=== PATIENT | female | born 1960 | race African-American/Black ===

== ENCOUNTER → 2016-07-08 | Outpatient (CLI) | payer BC, OTHER ==
[~2016-07-08] MED LIST: AMLO5TAB2 PO; ASPI-650 PO; FURO20TA3 PO; LISI1TAB3 PO; REGADENOSON 0.4 MG/5 ML SYRINGE ONE
== END | disposition home or self-care (01) ==
LOC: CFH 11:47
PROVIDERS: ATTEND Family Medicine
DX: R07.2 Precordial pain (principal); R06.02 Shortness of breath
CPT/HCPCS: J2785

== ENCOUNTER 2016-10-18 21:33 | Emergency (ER) | payer BC ==
[~2016-10-18] VITALS: Ht 162.6 cm; Wt 151.8 kg
[~2016-10-18 21:33] MED LIST changes: -REGADENOSON 0.4 MG/5 ML SYRINGE ONE
[2016-10-18] MEDS ORDERED: SODIUM CHLORIDE FLUSH 10ML SYR IVF ONE (22:00)
[2016-10-18] MEDS ORDERED: BP MED PO (22:20)
[2016-10-18 22:35] LABS: BLOOD UREA NITROGEN 22 mg/dL (7-18)
[2016-10-18 22:48] LABS: IS PT STATUS REG ER OR PRE ER? YES
[2016-10-19 00:02] VITALS: BP 138/80
== END 2016-10-19 00:05 | disposition home or self-care (01) ==
LOC: ED 23:59
DX: R20.2 Paresthesia of skin (principal); I10 Essential (primary) hypertension
CPT/HCPCS: 36415; 70450; 80048; 82040; 84484; 85025; 85610; 85730; 93005; 99285

== ENCOUNTER 2017-02-01 18:46 | Inpatient (IN) | payer BC ==
[~2017-02-01] VITALS: Ht 165.1 cm; Wt 123.6 kg
[~2017-02-01 18:46] MED LIST changes: +BP MED PO
[2017-02-01] MEDS ORDERED: SODIUM CHLORIDE FLUSH 10ML SYR IVF ONE (19:00)
[2017-02-01 19:13] LABS: HEMATOCRIT 44.4 % (34.6-47.8); HEMOGLOBIN 14.7 g/dL (11.7-16.4); WHITE BLOOD COUNT 7.6 x10^3/uL (3.4-10)
[2017-02-01] MEDS ORDERED: VERA180T56 PO (19:25)
[2017-02-01] MEDS ORDERED: LOSA1TAB16 PO (19:25)
[2017-02-01 19:26] LABS: ASPARTATE AMINO TRANSFERASE 19 U/L (15-37); BLOOD UREA NITROGEN 15 mg/dL (7-18)
[2017-02-01 19:32] LABS: IS PT STATUS REG ER OR PRE ER? YES
[2017-02-01] MEDS ORDERED: MORPHINE SULFATE 4 MG/ML, 1ML ONE (20:59)
[2017-02-01] MEDS ORDERED: MORPHINE SULFATE 4 MG/ML, 1ML IVPush PRN (21:00)
[2017-02-01] MEDS ORDERED: ONDANSETRON 2MG/ML, 2ML ONE (21:00)
[2017-02-01] MEDS ORDERED: ONDANSETRON 2MG/ML, 2ML IVPush ONE (21:00)
[2017-02-01] MEDS ORDERED: ENOXAPARIN 40 MG/0.4 ML ONE (21:52)
[2017-02-01] MEDS: ENOXAPARIN 40 MG/0.4 ML SQ SCH (21:54)
[2017-02-01] MEDS ORDERED: morphine SULFATE 10 MG/ML, 1ML IVPush PRN (22:00)
[2017-02-01] MEDS ORDERED: hydrALAzine 20 MG/ML, 1ML IVPush PRN (22:00)
[2017-02-01] MEDS ORDERED: NITROGLYCERIN 0.4 MG BOTTLE (25 TABS) SL PRN (22:00)
[2017-02-01] MEDS ORDERED: ONDANSETRON 2MG/ML, 2ML IVPush PRN (22:00)
[2017-02-01 22:49] VITALS: BP 152/85
[2017-02-01 23:56] LABS: IS PT STATUS REG ER OR PRE ER? NO
[2017-02-02 02:47] VITALS: BP 110/71
[2017-02-02] MEDS: ACETAMINOPHEN 325 MG TABLET PO PRN ×2 (02:52→08:52)
[2017-02-02 05:44] LABS: IS PT STATUS REG ER OR PRE ER? NO
[2017-02-02] MEDS: ASPIRIN 325 MG TABLET EC PO SCH (06:05)
[2017-02-02 07:33] VITALS: BP 129/77
[2017-02-02] MEDS: LOSARTAN 50MG TABLET PO SCH (08:52)
[2017-02-02] MEDS: VERAPAMIL ER 180MG TABLET.ER PO SCH (08:52)
[2017-02-02] MEDS: HYDROCHLOROTHIAZIDE 12.5 MG CAPSULE PO SCH (08:53)
[2017-02-02] MEDS: SODIUM CHLORIDE FLUSH 10ML SYR IVF SCH ×2 (08:53→20:04)
[2017-02-02] MEDS ORDERED: LORazepam 1MG TABLET PO ONE (09:00)
[2017-02-02 16:39] VITALS: BP 127/72
[2017-02-02 19:16] VITALS: BP 112/64
[2017-02-02] MEDS: ATORVASTATIN 10 MG TABLET PO SCH (20:04)
[2017-02-02] MEDS: ENOXAPARIN 40 MG/0.4 ML SQ SCH (20:04)
[2017-02-03 01:07] VITALS: BP 111/68
[2017-02-03 06:39] LABS: BLOOD UREA NITROGEN 17 mg/dL (7-18)
[2017-02-03 08:13] VITALS: BP 103/69
[2017-02-03] MEDS: VERAPAMIL ER 180MG TABLET.ER PO SCH (10:11)
[2017-02-03] MEDS: HYDROCHLOROTHIAZIDE 12.5 MG CAPSULE PO SCH (10:11)
[2017-02-03] MEDS: LOSARTAN 50MG TABLET PO SCH (10:11)
[2017-02-03] MEDS: ASPIRIN 325 MG TABLET EC PO SCH (10:11)
[2017-02-03] MEDS: SODIUM CHLORIDE FLUSH 10ML SYR IVF SCH ×2 (10:13→22:25)
[2017-02-03 14:07] VITALS: BP 138/78
[2017-02-03] MEDS: ACETAMINOPHEN 325 MG TABLET PO PRN (18:29)
[2017-02-03 20:25] VITALS: BP 117/70
[2017-02-03] MEDS: ATORVASTATIN 10 MG TABLET PO SCH (22:20)
[2017-02-03] MEDS: ENOXAPARIN 40 MG/0.4 ML SQ SCH (22:22)
[2017-02-04 01:50] VITALS: BP 107/70
[2017-02-04 05:22] LABS: HEMATOCRIT 38.1 % (34.6-47.8); HEMOGLOBIN 12.7 g/dL (11.7-16.4); WHITE BLOOD COUNT 6.2 x10^3/uL (3.4-10)
[2017-02-04 05:30] LABS: BLOOD UREA NITROGEN 18 mg/dL (7-18)
[2017-02-04 08:07] VITALS: BP 119/73
[2017-02-04] MEDS: ASPIRIN 325 MG TABLET EC PO SCH (09:01)
[2017-02-04] MEDS: HYDROCHLOROTHIAZIDE 12.5 MG CAPSULE PO SCH (09:01)
[2017-02-04] MEDS: LOSARTAN 50MG TABLET PO SCH (09:01)
[2017-02-04] MEDS: SODIUM CHLORIDE FLUSH 10ML SYR IVF SCH ×2 (09:02→20:40)
[2017-02-04] MEDS: VERAPAMIL ER 180MG TABLET.ER PO SCH (09:02)
[2017-02-04 14:09] VITALS: BP 113/74
[2017-02-04 18:42] VITALS: BP 102/68
[2017-02-04] MEDS ORDERED: SUMATRIPTAN 100 MG TABLET PO PRN (20:30)
[2017-02-04] MEDS: ATORVASTATIN 10 MG TABLET PO SCH (20:41)
[2017-02-04] MEDS: ENOXAPARIN 40 MG/0.4 ML SQ SCH (20:41)
[2017-02-04 21:59] LABS: IS PT STATUS REG ER OR PRE ER? NO
[2017-02-05 01:18] VITALS: BP 115/70
[2017-02-05 04:38] LABS: HEMATOCRIT 39.6 % (34.6-47.8)
[2017-02-05 07:22] VITALS: BP 113/72
[2017-02-05] MEDS: HYDROCHLOROTHIAZIDE 12.5 MG CAPSULE PO SCH (09:07)
[2017-02-05] MEDS: LOSARTAN 50MG TABLET PO SCH (09:07)
[2017-02-05] MEDS: SODIUM CHLORIDE FLUSH 10ML SYR IVF SCH (09:07)
[2017-02-05] MEDS: VERAPAMIL ER 180MG TABLET.ER PO SCH (09:07)
[2017-02-05] MEDS: ASPIRIN 325 MG TABLET EC PO SCH (09:07)
[2017-02-05] MEDS ORDERED: ATOR10TA9 PO (11:45)
[2017-02-05] MEDS ORDERED: ZONI50CA2 PO (11:45)
[2017-02-05] MEDS ORDERED: ASPI-650 PO (11:45)
[2017-02-05 13:37] VITALS: BP 111/73
== END 2017-02-05 14:42 | disposition home or self-care (01) | DRG 103 ==
LOC: ED 19:09 → EDIP 20:50 → 5SO 23:46
PROVIDERS: ADMIT Hospitalist; ATTEND Internal Medicine
DX: G43.109 Migraine with aura, not intractable, without status migrainosus (principal); E66.01 Morbid (severe) obesity due to excess calories; Z68.42 Body mass index [BMI] 45.0-49.9, adult; R07.89 Other chest pain; E04.2 Nontoxic multinodular goiter; E78.5 Hyperlipidemia, unspecified; F41.9 Anxiety disorder, unspecified; I10 Essential (primary) hypertension; Z79.82 Long term (current) use of aspirin; Z91.018 Allergy to other foods
CPT/HCPCS: 36415; 70450; 70551; 71010; 76536; 80048; 80053; 80061; 84443; 84484; 85025; 93005; 93306; 93880; 96374; 96375; J1650; J2405; J2270

== ENCOUNTER 2017-07-27 06:40 | Inpatient (IN) | payer BC ==
[~2017-07-27] VITALS: Ht 160 cm; Wt 158.7 kg
[~2017-07-27 06:40] MED LIST changes: +ATOR10TA9 PO; +LOSA1TAB19 PO; +VERA180T56 PO; +ZONI50CA2 PO
[2017-07-27] MEDS ORDERED: ASPIRIN 81 MG TABLET CHEW PO ONE (07:30)
[2017-07-27] MEDS ORDERED: NITROGLYCERIN SINGLE TAB 0.4 MG SL PRN (07:30)
[2017-07-27] MEDS ORDERED: SODIUM CHLORIDE FLUSH 10ML SYR IVF ONE (07:30)
[2017-07-27 07:45] LABS: ALANINE AMINOTRANSFERASE 24 U/L (12-78); ALBUMIN 3.8 g/dL (3.4-5.0); ANION GAP 9 mmol/L (5-15); CALCIUM 8.3 mg/dL (8.5-10.1); CHLORIDE 108 mmol/L (98-107); CREATININE 0.92 mg/dL (0.55-1.02)
[2017-07-27 07:46] LABS: INTERNATIONAL NORMALIZED RATIO 0.93 (0.93-1.1); PROTHROMBIN TIME 9.6 Seconds (9.6-11.5)
[2017-07-27 07:49] LABS: ALKALINE PHOSPHATASE 80 U/L (45-117); BILIRUBIN,TOTAL 0.3 mg/dL (0.2-1.0)
[2017-07-27 08:00] LABS: BASOPHILS # (AUTO) 0.04 x10^3/uL (0-0.1); BASOPHILS % (AUTO) 1 % (0-1); EOSINOPHILS % (AUTO) 10 % (1-7); LYMPHOCYTES # (AUTO) 1.87 x10^3/uL (1-3.4); LYMPHOCYTES % (AUTO) 32 % (22-44); MD NO; MEAN CORPUSCULAR HEMOGLOBIN 28.6 pg (27.0-34.8); MEAN CORPUSCULAR HGB CONC 33.1 g/dL (32.4-35.8); MEAN CORPUSCULAR VOLUME 86.4 fL (80-100); MEAN PLATELET VOLUME 9.3 fL (7.4-10.4); MONOCYTES # (AUTO) 0.45 x10^3/uL (0.2-0.8); MONOCYTES % (AUTO) 8 % (2-9); NEUTROPHILS # (AUTO) 2.96 x10^3/uL (1.8-6.8); NEUTROPHILS % (AUTO) 50 % (42-75); PLATELET COUNT 311 x10^3/uL (130-400); RED BLOOD COUNT 4.65 x10^6/uL (3.82-5.3)
[2017-07-27] MEDS ORDERED: SODIUM CHLORIDE FLUSH 10ML SYR IVF PRN (09:00)
[2017-07-27] MEDS ORDERED: ONDANSETRON ODT 4 MG ONE (09:24)
[2017-07-27] MEDS ORDERED: ONDANSETRON ODT 4 MG PO ONE (09:30)
[2017-07-27] MEDS ORDERED: OMNIPAQUE 350 MG/ML, 150 ML BOTTLE ONE (09:32)
[2017-07-27] MEDS ORDERED: POLYETHYLENE GLYCOL 17 GM PACKET PO PRN (12:00)
[2017-07-27] MEDS ORDERED: ONDANSETRON 2MG/ML, 2ML IVPush PRN (12:00)
[2017-07-27] MEDS ORDERED: ONDANSETRON ODT 4 MG PO PRN (12:00)
[2017-07-27] MEDS ORDERED: TEMPLATE NON-FORMULARY MED. (Losartan/Hydrochlorothiazide** (Losartan-Hctz 50-12.5 Mg Tab PO SCH (12:00)
[2017-07-27] MEDS ORDERED: LABETALOL 5MG/ML, 20ML IVPush PRN (12:00)
[2017-07-27] MEDS ORDERED: KETOROLAC 30 MG/1 ML IM ONE (12:30)
[2017-07-27] MEDS ORDERED: METOCLOPRAMIDE 5 MG/ML, 2ML IVPush ONE (12:30)
[2017-07-27] MEDS ORDERED: DIPHENHYDRAMINE 50 MG/ML, 1ML IVPush ONE (12:30)
[2017-07-27] MEDS ORDERED: KETOROLAC 30 MG/1 ML IVPush ONE (12:30)
[2017-07-27 12:56] LABS: FREE T4 (FREE THYROXINE) 1.42 ng/dL (0.76-1.46); TROPONIN I < 0.015 ng/mL (0.000-0.045)
[2017-07-27 14:30] VITALS: BP 134/85
[2017-07-27] MEDS: HYDROCHLOROTHIAZIDE 12.5 MG CAPSULE PO SCH (16:30)
[2017-07-27] MEDS: LOSARTAN 50MG TABLET PO SCH (16:31)
[2017-07-27] MEDS: ENOXAPARIN 40 MG/0.4 ML SQ SCH (16:31)
[2017-07-27 16:35] VITALS: BP 144/87
[2017-07-27] MEDS: SODIUM CHLORIDE 0.9% 1,000 ML IV SCH (16:52)
[2017-07-27 18:00] LABS: TROPONIN I < 0.015 ng/mL (0.000-0.045)
[2017-07-27] MEDS: VERAPAMIL ER 180MG TABLET.ER PO SCH (18:16)
[2017-07-27 19:31] VITALS: BP 100/64
[2017-07-27] MEDS: ATORVASTATIN 10 MG TABLET PO SCH (20:19)
[2017-07-28 02:07] VITALS: BP 129/80
[2017-07-28] MEDS: SODIUM CHLORIDE 0.9% 1,000 ML IV SCH ×2 (02:18→11:30)
[2017-07-28 05:10] LABS: BASOPHILS # (AUTO) 0.02 x10^3/uL (0-0.1); BASOPHILS % (AUTO) 0 % (0-1); EOSINOPHILS # (AUTO) 0.42 x10^3/uL (0-0.4); EOSINOPHILS % (AUTO) 8 % (1-7); LYMPHOCYTES # (AUTO) 1.47 x10^3/uL (1-3.4); LYMPHOCYTES % (AUTO) 30 % (22-44); MD NO; MEAN CORPUSCULAR HEMOGLOBIN 28.7 pg (27.0-34.8); MEAN CORPUSCULAR VOLUME 86.8 fL (80-100); MEAN PLATELET VOLUME 8.8 fL (7.4-10.4); MONOCYTES # (AUTO) 0.48 x10^3/uL (0.2-0.8); MONOCYTES % (AUTO) 10 % (2-9); NEUTROPHILS # (AUTO) 2.57 x10^3/uL (1.8-6.8); NEUTROPHILS % (AUTO) 52 % (42-75); PLATELET COUNT 261 x10^3/uL (130-400); RED BLOOD COUNT 4.09 x10^6/uL (3.82-5.3)
[2017-07-28 05:19] LABS: ALANINE AMINOTRANSFERASE 21 U/L (12-78); ALBUMIN 3.1 g/dL (3.4-5.0); ANION GAP 10 mmol/L (5-15); CALCIUM 7.9 mg/dL (8.5-10.1); CHLORIDE 108 mmol/L (98-107)
[2017-07-28 05:22] LABS: ALKALINE PHOSPHATASE 66 U/L (45-117); BILIRUBIN,TOTAL 0.5 mg/dL (0.2-1.0); CREATININE 0.99 mg/dL (0.55-1.02); TOTAL PROTEIN 6.9 g/dL (6.4-8.2)
[2017-07-28] MEDS: SENNA/DOCUSATE TABLET PO SCH (08:08)
[2017-07-28] MEDS: LOSARTAN 50MG TABLET PO SCH (08:31)
[2017-07-28] MEDS: ASPIRIN 325 MG TABLET EC PO SCH (08:35)
[2017-07-28] MEDS: HYDROCHLOROTHIAZIDE 12.5 MG CAPSULE PO SCH (08:35)
[2017-07-28] MEDS: VERAPAMIL ER 180MG TABLET.ER PO SCH (08:35)
[2017-07-28 08:53] VITALS: BP 139/87
[2017-07-28] MEDS ORDERED: HYDROCHLOROTHIAZIDE 12.5 MG CAPSULE PO SCH (09:00)
[2017-07-28] MEDS ORDERED: LOSARTAN 50MG TABLET PO SCH (09:00)
[2017-07-28] MEDS: ENOXAPARIN 40 MG/0.4 ML SQ SCH (11:30)
[2017-07-28 12:50] VITALS: BP 140/83
[2017-07-28] MEDS: ZONISAMIDE 50 MG CAPSULE PO SCH (17:09)
[2017-07-28] MEDS: ATORVASTATIN 10 MG TABLET PO SCH (20:07)
[2017-07-28 20:20] VITALS: BP 142/82
[2017-07-29 00:07] VITALS: BP 117/72
[2017-07-29] MEDS ORDERED: KETOROLAC 30 MG/1 ML IVPush PRN (01:30)
[2017-07-29 05:13] LABS: BASOPHILS # (AUTO) 0.02 x10^3/uL (0-0.1); BASOPHILS % (AUTO) 0 % (0-1); EOSINOPHILS # (AUTO) 0.51 x10^3/uL (0-0.4); EOSINOPHILS % (AUTO) 8 % (1-7); LYMPHOCYTES # (AUTO) 1.74 x10^3/uL (1-3.4); LYMPHOCYTES % (AUTO) 29 % (22-44); MD NO; MEAN CORPUSCULAR HEMOGLOBIN 28.9 pg (27.0-34.8); MEAN CORPUSCULAR HGB CONC 33.3 g/dL (32.4-35.8); MEAN CORPUSCULAR VOLUME 86.8 fL (80-100); MEAN PLATELET VOLUME 8.9 fL (7.4-10.4); MONOCYTES # (AUTO) 0.55 x10^3/uL (0.2-0.8); MONOCYTES % (AUTO) 9 % (2-9); NEUTROPHILS % (AUTO) 54 % (42-75); PLATELET COUNT 261 x10^3/uL (130-400); RED BLOOD COUNT 4.18 x10^6/uL (3.82-5.3); RED CELL DISTRIBUTION WIDTH 14.5 % (9.6-15.2)
[2017-07-29 05:19] LABS: ALBUMIN 3.4 g/dL (3.4-5.0); ANION GAP 10 mmol/L (5-15); CALCIUM 8.3 mg/dL (8.5-10.1); CHLORIDE 107 mmol/L (98-107); CREATININE 0.99 mg/dL (0.55-1.02)
[2017-07-29] MEDS: ASPIRIN 325 MG TABLET EC PO SCH (05:58)
[2017-07-29 06:30] VITALS: BP 111/69
[2017-07-29] MEDS: ZONISAMIDE 50 MG CAPSULE PO SCH (08:44)
[2017-07-29] MEDS: HYDROCHLOROTHIAZIDE 12.5 MG CAPSULE PO SCH (08:44)
[2017-07-29] MEDS: VERAPAMIL ER 180MG TABLET.ER PO SCH (08:45)
[2017-07-29] MEDS: LOSARTAN 50MG TABLET PO SCH (08:45)
[2017-07-29] MEDS: SENNA/DOCUSATE TABLET PO SCH (08:45)
[2017-07-29] MEDS ORDERED: ZONISAMIDE 50 MG CAPSULE PO SCH (09:00)
[2017-07-29] MEDS: ENOXAPARIN 40 MG/0.4 ML SQ SCH (12:00)
[2017-07-29 12:26] VITALS: BP 139/87
[2017-07-29] MEDS ORDERED: ZONI50CA2 PO (13:44)
== END 2017-07-29 14:24 | disposition home or self-care (01) | DRG 103 ==
LOC: ED 08:59 → EDIP 09:00 → ED 09:20 → 5SO 10:40 → 3NW 07-28 16:56
PROVIDERS: ADMIT Internal Medicine Pulmonary Disease; ATTEND Internal Medicine Pulmonary Disease
PROC: 5A09357 Assistance with Respiratory Ventilation, Less than 24 Consecutive Hours, Continuous Positive Airway Pressure (ICD-10-PCS; principal; 2017-07-29)
DX: G43.819 Other migraine, intractable, without status migrainosus (principal); I10 Essential (primary) hypertension; E66.01 Morbid (severe) obesity due to excess calories; Z68.44 Body mass index [BMI] 60.0-69.9, adult; Z91.018 Allergy to other foods
CPT/HCPCS: 36415; 70450; 70496; 70498; 71045; 80048; 80053; 82040; 83735; 83880; 84100; 84439; 84484; 85025; 85610; 85730; 93005; 99285; J1650; J1885; Q9967; J1200; J2765; J7030

== ENCOUNTER 2018-03-13 22:29 | Emergency (ER) | payer BC ==
[~2018-03-13] VITALS: Ht 162.6 cm; Wt 164.0 kg
[~2018-03-13 22:29] MED LIST changes: -AMLO5TAB2 PO; +AMLO5TAB7 PO
[2018-03-13] MEDS ORDERED: SODIUM CHLORIDE FLUSH 10ML SYR IVF ONE (23:00)
[2018-03-13] MEDS ORDERED: MORPHINE SULFATE 4 MG/ML, 1ML IVPush PRN (23:00)
[2018-03-13 23:25] LABS: MEAN CORPUSCULAR HEMOGLOBIN 29.1 pg (27.0-34.8); MEAN CORPUSCULAR HGB CONC 33.3 g/dL (32.4-35.8); MEAN CORPUSCULAR VOLUME 87.3 fL (80-100); MEAN PLATELET VOLUME 8.9 fL (7.4-10.4); PLATELET COUNT 320 x10^3/uL (130-400); RED BLOOD COUNT 4.59 x10^6/uL (3.82-5.3); RED CELL DISTRIBUTION WIDTH 15.3 % (9.6-15.2)
[2018-03-13 23:37] LABS: ALANINE AMINOTRANSFERASE 30 U/L (12-78); ALBUMIN 3.8 g/dL (3.4-5.0); ANION GAP 10 mmol/L (5-15); CALCIUM 8.4 mg/dL (8.5-10.1); CHLORIDE 111 mmol/L (98-107); CREATININE 1.13 mg/dL (0.55-1.02)
[2018-03-13 23:41] LABS: ALKALINE PHOSPHATASE 93 U/L (45-117); BILIRUBIN,TOTAL 0.2 mg/dL (0.2-1.0); TOTAL PROTEIN 8.3 g/dL (6.4-8.2); TROPONIN I < 0.015 ng/mL (0.000-0.045)
[2018-03-13 23:42] LABS: BASOPHILS # (AUTO) 0.03 x10^3/uL (0-0.1); BASOPHILS % (AUTO) 0 % (0-1); EOSINOPHILS # (AUTO) 0.59 x10^3/uL (0-0.4); EOSINOPHILS % (AUTO) 8 % (1-7); LYMPHOCYTES # (AUTO) 2.05 x10^3/uL (1-3.4); LYMPHOCYTES % (AUTO) 26 % (22-44); MD SCAN; MONOCYTES # (AUTO) 0.38 x10^3/uL (0.2-0.8); MONOCYTES % (AUTO) 5 % (2-9); NEUTROPHILS # (AUTO) 4.75 x10^3/uL (1.8-6.8); NEUTROPHILS % (AUTO) 61 % (42-75)
[2018-03-13 23:48] LABS: INTERNATIONAL NORMALIZED RATIO 0.92 (0.93-1.1); PROTHROMBIN TIME 9.8 Seconds (9.6-11.5)
[2018-03-13] MEDS ORDERED: MORPHINE SULFATE 4 MG/ML, 1ML ONE (23:49)
[2018-03-13 23:55] VITALS: BP 147/88
[2018-03-14] MEDS ORDERED: ONDANSETRON 2MG/ML, 2ML ONE (00:43)
[2018-03-14] MEDS ORDERED: DIPHENHYDRAMINE 50 MG/ML, 1ML ONE (00:43)
[2018-03-14] MEDS ORDERED: ONDANSETRON 2MG/ML, 2ML IVPush ONE (01:00)
[2018-03-14] MEDS ORDERED: DIPHENHYDRAMINE 50 MG/ML, 1ML IVPush ONE (01:00)
[2018-03-14] MEDS ORDERED: OMNIPAQUE 350 MG/ML, 150 ML BOTTLE ONE (01:10)
== END 2018-03-14 01:54 | disposition home or self-care (01) ==
LOC: ED 22:47
DX: M54.6 Pain in thoracic spine (principal); R07.89 Other chest pain; G43.909 Migraine, unspecified, not intractable, without status migrainosus; I10 Essential (primary) hypertension
CPT/HCPCS: 36415; 71045; 71275; 80053; 84484; 85025; 85610; 85730; 93005; 93971; 96374; 96375; 99284; J1200; J2405; Q9967

== ENCOUNTER 2018-11-14 11:20 | Emergency (ER) | payer BC ==
[~2018-11-14] VITALS: Ht 157.5 cm; Wt 164.2 kg
[2018-11-14 15:49] VITALS: BP 103/64
== END 2018-11-14 15:53 | disposition home or self-care (01) ==
LOC: ED 13:42
DX: R10.11 Right upper quadrant pain (principal); R11.2 Nausea with vomiting, unspecified; I10 Essential (primary) hypertension; G43.909 Migraine, unspecified, not intractable, without status migrainosus
CPT/HCPCS: 36415; 74177; 76700; 80053; 81001; 82962; 83690; 85025; 87086; 96374; 96375; 99284; J2270; J2405

== ENCOUNTER 2018-11-25 10:51 | Emergency (ER) | payer BC ==
[~2018-11-25] VITALS: Ht 162.6 cm; Wt 165.7 kg
[~2018-11-25 10:51] MED LIST changes: +AMLO-150 PO; -AMLO5TAB7 PO; +LISI1TAB23 PO; -LISI1TAB3 PO; +METF500T17 PO; -VERA180T56 PO; +VERA180T6 PO
--- NOTE | 2018-11-25 11:08 | NUR ---
PT A&OX4, RESP EVEN & UNLABORED, SPEECH CLEAR, SKIN WNL. C/O RT FLANK PAIN RADIATING TO RLQ. STATES SHE'S BEEN TO [facility] BEFORE FOR SIMILAR PAIN AND WANTS TO MAKE SURE NOTHING WAS MISSED. PT AMBULATORY TO [facility] TO PROVIDE URINE SPECIMEN; GAIT STEADY.
--- NOTE | 2018-11-25 11:13 | NUR ---
PT RETURNED TO ED ROOM 26. VOIDED SPECIMEN PROVIDED: CLEAR, YELLOW. PT STATES PAIN STARTED 3 WEEKS AGO; PAIN WORSENS W/ MOVEMENT; PAIN LESS W/ SITTING UP. ALEVE YESTERDAY W/OUR RELIEF. +NAUSEA, VOMITED THIS AM. LAST ORAL: FOOD AT 0730. LAST BM: THIS AM - [facility]. DENIES HX KIDNEY STONE. Addendum: 11/25/18 at 1127 by FLOR STATES PAIN ALSO WORSENS AFTER EATING, NAUSEA AFTER EATING.
[2018-11-25] MEDS ORDERED: FAMO20TA7 PO (11:26)
--- NOTE | 2018-11-25 11:56 | NUR ---
DISCUSSED POC W/ ERP. PT NOTIFIED OF MED ORDER. PT PREFERS PAIN SHOT TO IV MEDS, IF POSSIBLE; WILL DISCUSS W/ ERP.
[2018-11-25 11:59] LABS: BASOPHILS # (AUTO) 0.01 x10^3/uL (0-0.1); BASOPHILS % (AUTO) 0 % (0-1); EOSINOPHILS # (AUTO) 0.45 x10^3/uL (0-0.4); EOSINOPHILS % (AUTO) 9 % (1-7); LYMPHOCYTES # (AUTO) 1.37 x10^3/uL (1-3.4); LYMPHOCYTES % (AUTO) 27 % (22-44); MD NO; MEAN CORPUSCULAR HEMOGLOBIN 28.7 pg (27.0-34.8); MEAN CORPUSCULAR HGB CONC 32.5 g/dL (32.4-35.8); MEAN CORPUSCULAR VOLUME 88.1 fL (80-100); MEAN PLATELET VOLUME 8.4 fL (7.4-10.4); MONOCYTES # (AUTO) 0.41 x10^3/uL (0.2-0.8); MONOCYTES % (AUTO) 8 % (2-9); NEUTROPHILS # (AUTO) 2.88 x10^3/uL (1.8-6.8); NEUTROPHILS % (AUTO) 56 % (42-75); PLATELET COUNT 280 x10^3/uL (130-400); RED CELL DISTRIBUTION WIDTH 15.1 % (9.6-15.2)
[2018-11-25] MEDS ORDERED: SODIUM CHLORIDE FLUSH 10ML SYR IVF ONE (12:00)
[2018-11-25] MEDS ORDERED: MORPHINE SULFATE 4 MG/ML, 1ML IVPush PRN (12:00)
[2018-11-25] MEDS ORDERED: ONDANSETRON 2MG/ML, 2ML IVPush ONE (12:00)
[2018-11-25 12:11] LABS: ALBUMIN 3.4 g/dL (3.4-5.0); ANION GAP 5 mmol/L (5-15); CALCIUM 8.6 mg/dL (8.5-10.1); CHLORIDE 110 mmol/L (98-107); CREATININE 1.14 mg/dL (0.55-1.02)
[2018-11-25 12:15] LABS: CULTURE INDICATED? NO; MICROSCOPIC NOT IND
[2018-11-25 12:15] LABS: ALANINE AMINOTRANSFERASE 31 U/L (12-78); ALKALINE PHOSPHATASE 94 U/L (45-117); BILIRUBIN,TOTAL 0.5 mg/dL (0.2-1.0); TOTAL PROTEIN 7.5 g/dL (6.4-8.2)
[2018-11-25] MEDS ORDERED: ONDANSETRON ODT 4 MG ONE (12:15)
[2018-11-25] MEDS ORDERED: HYDROmorphone 1 MG/ML, 1ML VIAL ONE (12:15)
--- NOTE | 2018-11-25 12:22 | NUR ---
ZOFRAN & DILAUDID GIVEN PER EMAR. PT AWAITING CT.
[2018-11-25] MEDS ORDERED: HYDROmorphone 2 MG/ML, 1ML IM PRN (12:30)
[2018-11-25] MEDS ORDERED: ONDANSETRON ODT 4 MG PO ONE (12:30)
--- NOTE | 2018-11-25 14:07 | NUR ---
DR BANGURA BS
[2018-11-25 14:39] VITALS: BP 127/70
== END 2018-11-25 15:04 | disposition home or self-care (01) ==
LOC: ED 12:10
DX: R10.11 Right upper quadrant pain (principal); R10.31 Right lower quadrant pain; E11.9 Type 2 diabetes mellitus without complications; I10 Essential (primary) hypertension; G43.909 Migraine, unspecified, not intractable, without status migrainosus; Z90.710 Acquired absence of both cervix and uterus
CPT/HCPCS: 36415; 74176; 80053; 81003; 83690; 85025; 96372; 99284; J1170; Q0162

== ENCOUNTER 2019-11-18 06:04 | Emergency (ER) | payer BC ==
[~2019-11-18] VITALS: Ht 157.5 cm; Wt 150.0 kg
[~2019-11-18 06:04] MED LIST changes: +FAMO20TA7 PO; +ZONI50CA10 PO; -ZONI50CA2 PO
[2019-11-18] MEDS ORDERED: ONDANSETRON 2MG/ML, 2ML IVPush ONE (07:00)
[2019-11-18] MEDS ORDERED: SODIUM CHLORIDE FLUSH 10ML SYR IVF ONE (07:00)
[2019-11-18] MEDS ORDERED: ASPIRIN 81 MG TABLET CHEW PO ONE (07:00)
[2019-11-18] MEDS ORDERED: MORPHINE SULFATE 4 MG/ML, 1ML IVPush PRN (07:00)
--- NOTE | 2019-11-18 07:02 | NUR ---
RECEIVED REPORT FROM WILFRED. PT UPRIGHT ON GURNEY AWAKE & C/O PAIN WITH MOVEMENT, RESPOND APPROP TO STAFF, COMFORT MEASURES PROVIDED, CALL LIGHT WITHIN REACH.
[2019-11-18] MEDS ORDERED: MORPHINE SULFATE 4 MG/ML, 1ML ONE (07:11)
[2019-11-18] MEDS ORDERED: ONDANSETRON 2MG/ML, 2ML ONE (07:11)
[2019-11-18] MEDS ORDERED: ASPIRIN 81 MG TABLET CHEW ONE (07:11)
[2019-11-18 07:27] LABS: BASOPHILS # (AUTO) 0.03 x10^3/uL (0-0.1); BASOPHILS % (AUTO) 1 % (0-1); EOSINOPHILS # (AUTO) 0.43 x10^3/uL (0-0.4); EOSINOPHILS % (AUTO) 6 % (1-7); LYMPHOCYTES # (AUTO) 1.75 x10^3/uL (1-3.4); LYMPHOCYTES % (AUTO) 26 % (22-44); MD NO; MEAN PLATELET VOLUME 8.8 fL (7.4-10.4); MONOCYTES # (AUTO) 0.54 x10^3/uL (0.2-0.8); MONOCYTES % (AUTO) 8 % (2-9); NEUTROPHILS # (AUTO) 4.11 x10^3/uL (1.8-6.8); NEUTROPHILS % (AUTO) 60 % (42-75); PLATELET COUNT 305 x10^3/uL (130-400); RED BLOOD COUNT 4.83 x10^6/uL (3.82-5.3); RED CELL DISTRIBUTION WIDTH 15.2 % (9.6-15.2)
[2019-11-18 07:39] LABS: ALANINE AMINOTRANSFERASE 28 U/L (12-78); ALBUMIN 3.5 g/dL (3.4-5.0); ANION GAP 8 mmol/L (5-15); CALCIUM 8.4 mg/dL (8.5-10.1); CHLORIDE 108 mmol/L (98-107); CREATININE 1.07 mg/dL (0.55-1.02)
[2019-11-18 07:39] LABS: MICROSCOPIC NOT IND
[2019-11-18 07:43] LABS: ALKALINE PHOSPHATASE 110 U/L (45-117); BILIRUBIN,TOTAL 0.4 mg/dL (0.2-1.0); TOTAL PROTEIN 8.1 g/dL (6.4-8.2); TROPONIN I < 0.015 ng/mL (0.000-0.045)
--- NOTE | 2019-11-18 08:04 | NUR ---
PT REMAINS UPRIGHT ON GURNEY AWAKE & C/O PAIN WITH MOVEMENT, PAIN MED "HELPED A LITTLE, I DON'T WANT ANYMORE THOUGH", RESPONDS APPROP TO STAFF, COMFORT MEASURES PROVIDED, CALL LIGHT WITHIN REACH.
[2019-11-18] MEDS ORDERED: KETOROLAC 30 MG/1 ML ONE (08:39)
[2019-11-18] MEDS ORDERED: KETOROLAC 30 MG/1 ML IVPush ONE (09:00)
--- NOTE | 2019-11-18 09:03 | NUR ---
PT UPRIGHT ON GURNEY AWAKE & C/O PAIN WITH MOVEMENT, "LAST PAIN MED HELPED MORE THAN THE FIRST ONE", RESPONDS APPROP TO STAFF, COMFORT MEASURES PROVIDED, CALL LIGHT WITHIN REACH.
[2019-11-18 11:02] VITALS: BP 119/53
--- NOTE | 2019-11-18 11:02 | NUR ---
PT AMBULATED STEADILY TO BR FOR VOID, BACK TO [facility] AWAKE & MORE COMFORTABLE, WATCHING TV, RESPONDS APPROP TO STAFF, COMFORT MEASURES PROVIDED, CALL LIGHT WITHIN REACH. IS EDUC PROVIDED, PT VERBALIZED & DEMONSTRATED UNDERSTANDING OF USE, ABLE TO INSPIRE TO 1500ML
--- NOTE | 2019-11-18 11:44 | NUR ---
Patient given IS, discharge instructions and Rx, they have confirmed that they understand the instructions. Patient ambulatory with steady gait but requested WC to DC desk for comfort.
== END 2019-11-18 11:54 | disposition home or self-care (01) ==
LOC: ED 06:34
DX: R07.89 Other chest pain (principal); J15.9 Unspecified bacterial pneumonia; R11.2 Nausea with vomiting, unspecified; R10.32 Left lower quadrant pain; M79.662 Pain in left lower leg; M79.89 Other specified soft tissue disorders; I10 Essential (primary) hypertension; G43.909 Migraine, unspecified, not intractable, without status migrainosus
CPT/HCPCS: 36415; 71045; 80053; 81003; 83880; 84484; 85025; 85379; 93005; 93971; 96374; 96375; 99285; J1885; J2270; J2405

== ENCOUNTER 2020-01-31 20:09 | Emergency (ER) | payer BC ==
[~2020-01-31] VITALS: Ht 165.1 cm; Wt 156.9 kg
[2020-01-31] MEDS ORDERED: OXYcodone/APAP 5/325MG TABLET ONE (21:16)
--- NOTE | 2020-01-31 21:20 | NUR ---
PT MEDICATED PER JUN FOR PAIN. XRAY AT BS AT THIS TIME.
[2020-01-31] MEDS ORDERED: OXYcodone/APAP 5/325MG TABLET PO ONE (21:30)
[2020-01-31 21:42] LABS: BASOPHILS % (AUTO) 1 % (0-1); EOSINOPHILS % (AUTO) 7 % (1-7); LYMPHOCYTES % (AUTO) 25 % (22-44); MEAN CORPUSCULAR HEMOGLOBIN 27.8 pg (27.0-34.8); MEAN CORPUSCULAR HGB CONC 32.4 g/dL (32.4-35.8); MEAN PLATELET VOLUME 8.5 fL (7.4-10.4); MONOCYTES % (AUTO) 8 % (2-9); NEUTROPHILS % (AUTO) 60 % (42-75); PLATELET COUNT 337 x10^3/uL (130-400); RED BLOOD COUNT 4.64 x10^6/uL (3.82-5.3); RED CELL DISTRIBUTION WIDTH 15.7 % (9.6-15.2)
[2020-01-31 21:43] LABS: MD NO
[2020-01-31 21:46] LABS: ALBUMIN 3.6 g/dL (3.4-5.0); ANION GAP 5 mmol/L (5-15); CALCIUM 8.6 mg/dL (8.5-10.1); CHLORIDE 110 mmol/L (98-107); CREATININE 1.02 mg/dL (0.55-1.02)
[2020-01-31 21:52] LABS: C-REACTIVE PROTEIN, QUANT 1.28 mg/dL (0.02-0.49)
[2020-01-31] MEDS ORDERED: CLINDAMYCIN 300 MG CAPSULE PO ONE (22:30)
[2020-01-31] MEDS ORDERED: CLINDAMYCIN 150 MG CAPSULE PO ONE (22:30)
[2020-01-31 23:07] VITALS: BP 132/80
--- NOTE | 2020-01-31 23:28 | NUR ---
PT D/C WITH D/C SUMMARY AND SCRIPTS. ALL QUESTIONS ANSWERED. PT AMBULATES TO REGISTRATION DESK WITH STEADY GAIT AND D/C HOME. PT DENIES ANY OTHER NEEDS PERTAINING TO THIS VISIT.
== END 2020-01-31 23:30 | disposition home or self-care (01) ==
LOC: ED 22:09
DX: L03.116 Cellulitis of left lower limb (principal); I10 Essential (primary) hypertension; E11.9 Type 2 diabetes mellitus without complications; G43.909 Migraine, unspecified, not intractable, without status migrainosus; Z90.710 Acquired absence of both cervix and uterus
CPT/HCPCS: 36415; 80048; 82040; 85025; 86140; 99284

== ENCOUNTER 2020-06-12 12:04 | Emergency (ER) | payer BC, OTHER ==
[~2020-06-12] VITALS: Ht 160 cm; Wt 153.7 kg
[~2020-06-12 12:04] MED LIST changes: +ASPI-1026 PO; -ASPI-650 PO; +ASPI325T20 PO
[2020-06-12 13:39] LABS: BASOPHILS % (AUTO) 1 % (0-1); EOSINOPHILS % (AUTO) 6 % (1-7); LYMPHOCYTES % (AUTO) 24 % (22-44); MEAN CORPUSCULAR HEMOGLOBIN 28.4 pg (27.0-34.8); MEAN CORPUSCULAR HGB CONC 32.9 g/dL (32.4-35.8); MEAN PLATELET VOLUME 8.7 fL (7.4-10.4); MONOCYTES % (AUTO) 9 % (2-9); NEUTROPHILS % (AUTO) 60 % (42-75); PLATELET COUNT 304 x10^3/uL (130-400); RED BLOOD COUNT 4.74 x10^6/uL (3.82-5.3)
[2020-06-12 13:40] LABS: MD NO
--- NOTE | 2020-06-12 13:42 | NUR ---
PT AMBULATED TO BR INDEPENDENTLY. UA OBTAINED AND SENT TO LAB.
[2020-06-12 13:46] LABS: ALANINE AMINOTRANSFERASE 28 U/L (12-78); ALBUMIN 3.8 g/dL (3.4-5.0); ANION GAP 6 mmol/L (5-15); CHLORIDE 109 mmol/L (98-107); CREATININE 1.05 mg/dL (0.55-1.02)
[2020-06-12 13:56] LABS: ALKALINE PHOSPHATASE 101 U/L (45-117); BILIRUBIN,TOTAL 0.4 mg/dL (0.2-1.0); TOTAL PROTEIN 7.8 g/dL (6.4-8.2); TROPONIN I < 0.015 ng/mL (0.000-0.045)
--- NOTE | 2020-06-12 14:03 | NUR ---
BREAK RN: URINE SPECIMEN COLLECTED AND SET TO LAB. WARM BLANKET PROVIDED, PER PT NO OTHER NEEDS AT THIS TIME.
[2020-06-12 14:22] VITALS: BP 125/88
== END 2020-06-12 14:23 | disposition home or self-care (01) ==
LOC: ED 12:27
DX: I10 Essential (primary) hypertension (principal); R42 Dizziness and giddiness; R51.9 Headache, unspecified; R07.9 Chest pain, unspecified
CPT/HCPCS: 36415; 71045; 80053; 84443; 84484; 85025; 93005; 99285

== ENCOUNTER 2020-07-02 06:44 | Emergency (ER) | payer OTHER ==
[~2020-07-02] VITALS: Ht 160 cm; Wt 175.0 kg
--- NOTE | 2020-07-02 07:04 | NUR ---
Recvd report from second shift supervisor RN
[2020-07-02] MEDS ORDERED: EMPA10TA PO (07:29)
--- NOTE | 2020-07-02 07:34 | NUR ---
pt is a 60f bib ems with complaints of headache and high bp with some dizziness since yesterday. She also complains of left flank pain x 1 week. denies any urinary discomfort. Son with her at bedside. EMS gave 4mg of zofran and 5mg lopressor in route. Pt is resting in bed with head pain as her biggest complaint. provider has been to bedside for eval. cardiac, sp02, and bp monitors in place. Urine specimen collected.Call light within reach.
[2020-07-02] MEDS ORDERED: PROMETHAZINE 25 MG/ML, 1ML ONE (07:44)
[2020-07-02] MEDS ORDERED: PROMETHAZINE 25 MG/ML, 1ML IM ONE (08:00)
[2020-07-02 08:02] LABS: MICROSCOPIC NOT IND
[2020-07-02 08:22] LABS: BASOPHILS % (AUTO) 1 % (0-1); EOSINOPHILS % (AUTO) 7 % (1-7); LYMPHOCYTES % (AUTO) 23 % (22-44); MEAN CORPUSCULAR HGB CONC 33.4 g/dL (32.4-35.8); MEAN PLATELET VOLUME 8.5 fL (7.4-10.4); MONOCYTES % (AUTO) 7 % (2-9); NEUTROPHILS % (AUTO) 61 % (42-75); PLATELET COUNT 322 x10^3/uL (130-400); RED BLOOD COUNT 4.84 x10^6/uL (3.82-5.3); RED CELL DISTRIBUTION WIDTH 15.1 % (9.6-15.2)
[2020-07-02 08:25] LABS: MD NO
[2020-07-02 08:26] LABS: ANION GAP 7 mmol/L (5-15); CALCIUM 8.9 mg/dL (8.5-10.1); CHLORIDE 106 mmol/L (98-107); CREATININE 1.01 mg/dL (0.55-1.02)
--- NOTE | 2020-07-02 08:53 | NUR ---
pt states the medication is helping with her headache a little bit. Its making her tired mostly. Call light within reach.
[2020-07-02 09:32] VITALS: BP 155/72
== END 2020-07-02 09:34 | disposition home or self-care (01) ==
LOC: ED 07:16
DX: G43.C0 Periodic headache syndromes in child or adult, not intractable (principal); I16.9 Hypertensive crisis, unspecified; R53.83 Other fatigue; R11.0 Nausea; E11.9 Type 2 diabetes mellitus without complications
CPT/HCPCS: 36415; 70450; 80048; 81003; 82040; 85025; 93005; 96372; 99285; J2550

== ENCOUNTER 2020-11-05 10:28 | Emergency (ER) | payer OTHER ==
[~2020-11-05] VITALS: Ht 160 cm; Wt 152.7 kg
[~2020-11-05 10:28] MED LIST changes: +EMPA10TA PO
--- NOTE | 2020-11-05 10:37 | NUR ---
BIBA s/p lost footing while going down approx 7 steps, c/o right hip pain and left lower smalls/calf pain. No head/neck trauma. Was able to stand on scene to assist to gurney. Prehospital: 1gm tylenol, ice pack for leg swelling Covid vaccine x2 [employer]
--- NOTE | 2020-11-05 11:01 | NUR ---
REPORT FROM AMANDA JEAN. CALL LIGHT WITHIN REACH.
[2020-11-05] MEDS ORDERED: KETOROLAC 60 MG/2 ML ONE (11:20)
[2020-11-05] MEDS ORDERED: HYDROmorphone 1 MG/ML, 1ML INJ ONE (11:21)
--- NOTE | 2020-11-05 11:25 | NUR ---
PT MEDICATED PER ERP ORDER FOR 10/10 PAIN TO R HIP. BP CUFF, PULSE OX IN PLACE. EKG COMPLETED. CALL LIGHT WITHIN REACH.
[2020-11-05] MEDS ORDERED: HYDROmorphone 1 MG/ML, 1ML INJ IM ONE (11:30)
[2020-11-05] MEDS ORDERED: KETOROLAC 30 MG/1 ML IM ONE (11:30)
[2020-11-05 11:52] LABS: ALBUMIN 3.7 g/dL (3.4-5.0); ANION GAP 4 mmol/L (5-15); CALCIUM 8.8 mg/dL (8.5-10.1); CHLORIDE 109 mmol/L (98-107)
[2020-11-05 11:57] LABS: CREATININE 0.93 mg/dL (0.55-1.02); TROPONIN I < 0.015 ng/mL (0.000-0.045)
[2020-11-05 11:59] LABS: BASOPHILS % (AUTO) 1 % (0-1); EOSINOPHILS % (AUTO) 6 % (1-7); LYMPHOCYTES % (AUTO) 22 % (22-44); MEAN CORPUSCULAR HEMOGLOBIN 28.7 pg (27.0-34.8); MEAN CORPUSCULAR HGB CONC 32.9 g/dL (32.4-35.8); MEAN PLATELET VOLUME 8.7 fL (7.4-10.4); MONOCYTES % (AUTO) 8 % (2-9); NEUTROPHILS % (AUTO) 64 % (42-75); PLATELET COUNT 318 x10^3/uL (130-400); RED BLOOD COUNT 4.73 x10^6/uL (3.82-5.3)
--- NOTE | 2020-11-05 12:10 | NUR ---
PT TO XRAY
--- NOTE | 2020-11-05 13:00 | NUR ---
ALL RESULTS BACK, PT FOR RECHECK.
[2020-11-05 13:35] VITALS: BP 121/61
== END 2020-11-05 13:38 | disposition home or self-care (01) ==
LOC: ED 12:35
DX: S39.012A Strain of muscle, fascia and tendon of lower back, initial encounter (principal); M25.551 Pain in right hip; R07.9 Chest pain, unspecified; R94.31 Abnormal electrocardiogram [ECG] [EKG]; I10 Essential (primary) hypertension; E11.9 Type 2 diabetes mellitus without complications; W01.0XXA Fall on same level from slipping, tripping and stumbling without subsequent striking against object, initial encounter; Y93.89 Activity, other specified; Y92.009 Unspecified place in unspecified non-institutional (private) residence as the place of occurrence of the external cause; Y99.8 Other external cause status
CPT/HCPCS: 36415; 71045; 72110; 73502; 80048; 82040; 84484; 85025; 85379; 93005; 96372; 99285; J1170; J1885